=== PATIENT | female | born 1990 | race Caucasian/White ===

== ENCOUNTER 2024-08-31 17:09 | Inpatient (IN) ==
[2024-09-01] MEDS ORDERED: OXYTOCIN 30 UNITS/NSS 30 UNITS/500 ML BAG IV PRN ×2 (08:07→18:14)
[2024-09-01] MEDS ORDERED: LIDOCAINE 1% LOCAL 20 ML VIAL INFIL PRN (08:07)
[2024-09-01 08:42] LABS: Hematocrit (blood only) 29.6 % (37.0-47.0); Hemoglobin 9.6 g/dl (12.0-16.0); Mean Corpuscular Hemoglobin 26.1 pg (25.0-34.0); Mean Corpuscular Volume 80.4 fL (80.0-100.0); Platelet Count 209 K/uL (130-400); RDW Standard Deviation 37.2 fL (36.4-46.3); Red Blood Count 3.68 M/uL (4.20-5.40); White Blood Count 8.57 K/ul (4.8-10.8)
[2024-09-01] MEDS: LACTATED RINGER'S 1,000 ML IV PRN (08:58)
[2024-09-01] MEDS: OXYTOCIN 30 UNITS/NSS 30 UNITS/500 ML BAG IV PRN (08:59)
--- NOTE | 2024-09-01 11:56 | History & Physical Report ---
Date of Service September 01, 2024 Assessment & Plan (1) Supervision of normal intrauterine in multigravida: (2) Encounter for induction of labor: Plan Carrie is a 33-year-old G2, P1 currently at 39 weeks 6 days gestational age presents for elective induction of labor 1. Fetus: Category 1 tracing 2. Labor: Very favorable cervix will start with oxytocin per regular protocol. Will plan for rupture of membranes when appropriate. 3. GBS negative 4. Vitals within normal limits Admission and Anticipated Discharge Date Admission Date: September 01, 2024 History of Present Illness Primary Care Provider: Reema Yen MD Carrie is a 33-year-old G2, P1 currently at 39 weeks 6 days gestational age presents for elective induction of labor. has been uncomplicated to date. OB Labs: Blood Type A Positive 02/06/24 Antibody Screen NEGATIVE 02/06/24 Hgb 11.3 g/dl (12.0-16.0) L 06/11/24 Hct 34.2 % (37.0-47.0) L 06/11/24 MCV 87.8 fL (80.0-100.0) 02/06/24 Plt Count 286 K/uL (130-400) 02/06/24 Rubella IgG Antibody Equivocal (Immune) L 02/06/24 Treponema pallidum Ab Negative (Negative) 06/11/24 Hep Bs Antigen Negative (Negative) 02/06/24 Hepatitis C Antibody Negative (Negative) 02/06/24 HIV 1&2 Ab/P24 Ag 4thGn Negative (Negative) 02/06/24 Glucose 1 Hr 50 gm 151 mg/dl (70-130) H 06/11/24 OB Optional Labs: Chlamydia trachomatis RNA Not Detected (NotDetected) 02/06/24 Neisseria gonorrhoeae RNA Not Detected (NotDetected) 02/06/24 Labs Reviewed: cfdna-low risk--mln Allergies Allergy/AdvReac Type Severity Reaction Status Date / Time No Known Allergies Allergy Verified 08/30/24 12:00 Home Medications Medication Instructions Recorded Confirmed Type buspirone 5 mg tablet 5 mg PO BID 01/27/24 09/01/24 History montelukast 10 mg tablet 10 mg PO DAILY 01/27/24 09/01/24 History (Raululair) prenat.vits,ana,vyu-bjyv-rmrtr tab PO 1XD 01/27/24 08/30/24 History sertraline 50 mg tablet (Zoloft) 50 mg PO DAILY 01/27/24 09/01/24 History Patient History Medical History (Updated 09/01/24 @ 11:56 by Shant Cardenas MD) Depression affecting , Depression Anxiety Surgical History S/P wisdom tooth extraction Family History Mother Dyslipidemia Depression Father Dyslipidemia Grandmother (Maternal) Hypertension Grandfather (Maternal) Diabetes Heart disease Social History Smoking Status: Never smoker Second Hand Exposure: No; Do You Dip or Chew Tobacco: No; Tobacco Cessation Education Requested by Patient: No Hx Alcohol Use: No Hx Substance Use: No Preferred Language: Dominican Communication Ability: Effective 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 Beliefs That Will Affect Care: None marital status: marital status details: Garrett (34) [phone] Current Living Situation: Spouse and Family Current Living Situation Comment: - Hank; daughter Lefty, 2 cats current occupational status: employed current occupation: Head of [employer] Other Information That Helps Us Care for You: No Feels Safe at Home: Yes Safety Concerns: Feels Safe At This Time Assistive Devices: Glasses Physical Exam Genitourinary: normal external appearance Manual OB Exam: + cervical dilation 4 cm, + cervical effacement 70% and + station -2 OB Exam Monitor Tracing: + external FHT monitor used, + external uterine monitor used, + category I and + normal FHT variability Results & Data Vital Signs (Past 12 Hours) Vital Signs Pulse BP 09/01/24 07:44 114 H 122/70 Coding Level of Care Code None Diagnoses Supervision of normal intrauterine in multigravida in third trimester Z34.83 Trimester: third trimester Encounter for induction of labor Z34.90 (1) Supervision of normal intrauterine in multigravida Trimester: third trimester Qualified Code(s): Z34.83 - Encounter for supervision of other normal , third trimester
[2024-09-01] MEDS ORDERED: BUPIVACAINE 0.25% PF 30 ML VIAL EPI PRN (12:52)
[2024-09-01] MEDS ORDERED: NALOXONE HCL 1 MG in SODIUM CHLORIDE 0.9% 1,000 ML IV PRN (12:52)
[2024-09-01] MEDS ORDERED: SODIUM CHLORIDE 0.9% PF INJ 10 ML VIAL EPI PRN (12:52)
[2024-09-01] MEDS ORDERED: NALOXONE HCL 0.4 MG/1 ML VIAL/CARP IV PRN (12:52)
[2024-09-01] MEDS ORDERED: fentANYL 2 MCG/ML BUPIVacaine 0.125%-NSS 100ML BAG EPI PRN (12:52)
[2024-09-01] MEDS ORDERED: diphenhydrAMINE 50 MG/ML VIAL IV PRN (12:52)
[2024-09-01] MEDS ORDERED: NALBUPHINE HCL INJ 10 MG/ML AMP IV PRN (12:52)
[2024-09-01] MEDS ORDERED: ONDANSETRON INJ 2 MG/ML 2 ML VIAL IV PRN (12:52)
[2024-09-01] MEDS ORDERED: LIDOCAINE 2% MPF LOCAL 5 ML VIAL EPI PRN (12:52)
[2024-09-01] MEDS ORDERED: ROPIVACAINE 0.5% PF 5 MG/ML 20 ML VIAL EPI PRN (12:52)
--- NOTE | 2024-09-01 12:54 | Anesthesiology Consultation ---
Date of Service September 01, 2024 Assessment & Plan (1) Encounter for pre-operative examination: Chart Review Chart Review: Patient NOT seen in Pre Admission Testing and Acceptable Risk for Labor Epidural Consults Requested none History Height/Weight Height: 5 ft 7 in Weight: 79.832 kg Allergies Allergy/AdvReac Type Severity Reaction Status Date / Time No Known Allergies Allergy Verified 08/30/24 12:00 Medications Home Medications Medication Instructions Recorded Confirmed Last Taken buspirone 5 mg tablet 5 mg PO BID 01/27/24 09/01/24 08/31/24 21:00 montelukast 10 mg tablet 10 mg PO DAILY 01/27/24 09/01/24 08/30/24 21:00 (Singulair) prenat.vits,ana,fna-gdyz-ygkee tab PO 1XD 01/27/24 08/30/24 08/31/24 08:30 sertraline 50 mg tablet (Zoloft) 50 mg PO DAILY 01/27/24 09/01/24 08/31/24 08:30 Active Medications Generic Name Dose Route Start Last Admin Trade Name Freq PRN Reason Stop Dose Admin Oxytocin 30 units in 500 mls @ 6 mls/hr 09/01/24 08:07 09/01/24 10:00 Pitocin 30 Units/Nss IV 09/03/24 08:06 0.36 units/hr .Q24H PRN 6 mls/hr Labor Induction/Augmentation Titration Protocol 0.36 UNITS/HR Lactated Ringer's 1,000 mls @ 125 mls/hr 09/01/24 08:07 09/01/24 12:59 Lr IV 09/03/24 08:06 999 mls/hr .Q8H PRN Administration L&D Protocol Protocol Past Medical History Medical History (Updated 09/01/24 @ 12:54 by Tad Francis MD) Encounter for pre-operative examination Depression affecting , Depression Anxiety Exercise / Class Metabolic Activity II 4-5 Yardwork/Stairs/Walk up hill Past Family History Family History Mother Dyslipidemia Depression Father Dyslipidemia Grandmother (Maternal) Hypertension Grandfather (Maternal) Diabetes Heart disease Past Surgical History Surgical History S/P wisdom tooth extraction Social History Smoking Status: Never smoker Do You Dip or Chew Tobacco: No Hx Alcohol Use: No Alcohol Intake Frequency Comment: prior to - socially Hx Substance Use: No substance use type: does not use Physical Exam Vital Signs Last Vital Signs Temp 36.8 C 09/01/24 11:06 Pulse 82 09/01/24 13:24 Resp 18 09/01/24 12:30 BP 121/69 09/01/24 13:24 Pulse Ox 100 09/01/24 13:24 O2 Del Method Room Air 09/01/24 08:08 Testing Laboratory Results 09/01/24 08:24
[2024-09-01] MEDS: BUPIVACAINE 0.25% PF 30 ML VIAL ONE (13:26)
[2024-09-01] MEDS: LIDOCAINE 2%/EPINEPHRINE 1:200,000 20 ML PF ONE (13:26)
[2024-09-01] MEDS: LIDOCAINE 2%/EPINEPHRINE 1:200,000 20 ML PF EPI STA (13:30)
[2024-09-01] MEDS: SODIUM CHLORIDE 0.9% PF INJ 10 ML VIAL EPI STA (13:31)
[2024-09-01] MEDS: BUPIVACAINE 0.25% PF 30 ML VIAL EPI STA (13:31)
[2024-09-01] MEDS: fentANYL 2 MCG/ML BUPIVacaine 0.125%-NSS 100ML BAG ONE (13:33)
--- NOTE | 2024-09-01 14:22 | Labor Progress Brief Note ---
Date of Service September 01, 2024 Subjective Reason For Note: Routine Evaluation Assessment & Plan (1) Supervision of normal intrauterine in multigravida: Trimester: third trimester Qualified Code(s): Z34.83 - Encounter for supervision of other normal , third trimester (2) Encounter for induction of labor: Plan Carrie is a 33-year-old G2, P1 currently at 39 weeks 6 days gestational age presents for elective induction of labor 1. Fetus: Category 1 tracing 2. Labor: Very favorable cervix will start with oxytocin per regular protocol. AROM for clear. 3. GBS negative 4. Vitals within normal limits Admission and Anticipated Discharge Date Admission Date: September 01, 2024 Physical Exam Genitourinary: Manual OB Exam: + cervical dilation 5 cm, + cervical effacement 80%, + station -2 and + amniotic fluid (AROM) clear Results & Data Vital Signs (Past 12 Hours) Vital Signs Temp Pulse Resp BP Pulse Ox O2 Del Method 09/01/24 14:20 71 108/61 09/01/24 14:19 78 99 09/01/24 14:14 81 100 09/01/24 14:09 83 100 09/01/24 14:04 89 100 09/01/24 14:00 108 H 18 124/64 09/01/24 13:59 87 100 09/01/24 13:54 98 09/01/24 13:54 87 09/01/24 13:54 88 118/64 09/01/24 13:51 88 111/62 09/01/24 13:50 86 114/64 09/01/24 13:49 86 99 09/01/24 13:44 77 122/70 97 09/01/24 13:42 72 122/72 09/01/24 13:40 82 119/68 09/01/24 13:39 84 99 09/01/24 13:38 75 114/63 09/01/24 13:36 93 H 113/70 09/01/24 13:34 88 111/69 99 09/01/24 13:32 90 110/64 09/01/24 13:30 83 112/64 09/01/24 13:29 79 100 09/01/24 13:28 80 113/63 09/01/24 13:26 73 113/61 09/01/24 13:24 82 121/69 100 09/01/24 13:22 92 H 122/74 09/01/24 13:20 94 H 128/74 09/01/24 13:19 85 100 09/01/24 13:18 89 136/74 09/01/24 13:16 79 137/75 09/01/24 13:14 99 H 142/80 H 100 09/01/24 13:09 99 H 100 09/01/24 13:07 120 H 134/74 09/01/24 13:04 93 H 100 09/01/24 12:59 79 100 09/01/24 12:54 79 100 09/01/24 12:41 73 99 09/01/24 12:36 81 99 09/01/24 12:30 18 09/01/24 12:30 18 09/01/24 12:07 72 124/78 09/01/24 12:00 16 09/01/24 12:00 16 09/01/24 11:07 80 111/66 09/01/24 11:06 18 09/01/24 11:06 36.8 C 18 09/01/24 10:08 73 119/68 09/01/24 09:52 75 112/65 09/01/24 09:37 86 107/65 09/01/24 09:22 82 115/77 09/01/24 08:08 37.1 C 114 H 18 122/70 Room Air 09/01/24 07:44 114 H 122/70 Coding Level of Care Code None Diagnoses Supervision of normal intrauterine in multigravida in third trimester Z34.83 Trimester: third trimester Encounter for induction of labor Z34.90
[2024-09-01] MEDS ORDERED: HYDROCORTISONE ACETATE 25 MG SUPP PR PRN (18:14)
--- NOTE | 2024-09-01 18:19 | Delivery Summary ---
Vaginal Delivery Summary Date of Service September 01, 2024 Vaginal Delivery Summary and 2nd Degree LAC Patient progressed to 10 cm dilated, 100% effaced, +2 station and pushed over an intact perineum with epidural anesthesia and delivered a viable female with weight and Apgars pending. Head of the delivered without difficulty quickly followed by shoulders and body. was noted be vigorous upon delivery and 1 minute delayed cord clamping was initiated. Cord was then double clamped and cut remained on maternal abdomen. Cord blood obtained and attention turned to delivery of placenta was delivered intact with three-vessel cord with gentle cord traction. Inspection of perineum vagina and cervix there is noted to be a second-degree perineal laceration which was repaired with 3-0 Vicryl in traditional crown stitch. Needle sponge and instrument counts were correct at the completion of the case. Both mother and stable in the immediate postdelivery timeframe. No complications noted and blood loss per QBL in chart. [facility] Vaginal Delivery Charge Delivery Type Details: and 2nd Degree LAC
[2024-09-01] MEDS: SODIUM CHLORIDE 0.9% PF INJ 10 ML VIAL ONE (19:05)
[2024-09-01] MEDS: DIPHTHER/TETAN/PERTUS Vaccine (Tdap, Adol/Adult) 0.5mL IM ONE (19:05)
[2024-09-01] MEDS: IBUPROFEN 600 MG TAB PO PRN (19:07)
[2024-09-01] MEDS: BENZOCAINE 20% SPRY 85 APPLN/85 GM CAN EXT PRN (19:08)
--- NOTE | 2024-09-01 21:51 | Anesthesia Procedure Note ---
Date of Service September 01, 2024 Anesthesia Post Epidural Note Vital Signs Vital Signs: Temp Pulse Resp BP Pulse Ox O2 Del Method 36.8 C 90 16 105/69 97 Room Air 09/01/24 21:00 09/01/24 21:00 09/01/24 21:00 09/01/24 21:00 09/01/24 21:00 09/01/24 08:08 Notes Mental Status: alert / awake / arousable and participated in evaluation Patient Amnestic to Procedure: No Nausea / Vomiting: adequately controlled Pain: adequately controlled Airway Patency, RR, SpO2: stable & adequate BP & HR: stable & adequate Hydration State: stable & adequate Neuraxial Anesthesia: was administered and sensory block is resolving Anesthetic Complications: no major complications apparent and Pt Satisfied with anesthetic care Epidural: Removed without complications and With tip intact
[2024-09-01] MEDS: busPIRone 5 MG TAB PO SCH (23:24)
[2024-09-01] MEDS: DOCUSATE SODIUM 100 MG CAP PO SCH (23:24)
[2024-09-02] MEDS: ACETAMINOPHEN 325 MG TAB PO PRN (05:58)
--- NOTE | 2024-09-02 07:56 | Obstetrical Progress Note ---
Date of Service September 02, 2024 Assessment & Plan (1) Encounter for care and examination after delivery: Day 1 status post vaginal delivery. Urinary retention requiring several straight caths since delivery. Lutz replaced this morning. Will continue to monitor and will plan voiding trial later today or tomorrow morning Subjective Ambulation: ambulating normally Voiding: lutz catheter in place and voiding difficulty Passing Gas:: Yes Diet Tolerance:: regular diet Lochia:: Moderate Urinary retention requiring several straight caths since delivery. Lutz replaced this morning Physical Exam Constitutional WD/WN, vitals as above Respiratory normal respiratory effort; no respiratory distress and no labored breathing Cardiovascular Extremities: no calf tenderness Gastrointestinal (Abdomen) Inspection/Auscultation: abdomen normal to inspection; abdomen not distended Percussion/Palpation: abdomen soft; abdomen nontender, no guarding and abdomen not rigid Genitourinary OB Exam Abdomen: + fundal height Fundus: + firm and + relation to umbilicus (Below); not tender or not boggy Results & Data Vital Signs (Past 12 Hours) Vital Signs Temp Pulse Resp BP Pulse Ox 09/02/24 04:45 36.6 C 69 16 118/76 100 09/02/24 01:45 36.8 C 78 16 107/69 99 09/01/24 21:00 36.8 C 90 16 105/69 97 09/01/24 20:20 36.8 C 18 09/01/24 20:10 94 H 107/60
[2024-09-02 08:09] LABS: Hematocrit (blood only) 25.0 % (37.0-47.0); Hemoglobin 7.9 g/dl (12.0-16.0)
[2024-09-02] MEDS: FERROUS SULFATE 325 MG TAB PO SCH (08:50)
[2024-09-02] MEDS: PRENATAL VITAMIN 1 TAB PO SCH (08:50)
[2024-09-02] MEDS: SERTRALINE HCL 50 MG TABLET PO SCH (08:51)
[2024-09-02 11:42] VITALS: RESP 18
[2024-09-02] MEDS: ONDANSETRON 4 MG OD TAB PO PRN (14:19)
[2024-09-02 19:01] VITALS: BP 137/77; PULSE 81; TEMP 97.5; O2SAT 99
--- NOTE | 2024-09-02 20:19 | Obstetrical Progress Note ---
Date of Service September 02, 2024 Assessment & Plan Admission and Anticipated Discharge Date Admission Date: September 01, 2024 Subjective Basurto was removed this afternoon, has been voiding on her own and feels like she is emptying her bladder well at this point. Desires DC home. Results & Data Vital Signs (Past 12 Hours) Vital Signs Temp Pulse Resp BP Pulse Ox O2 Del Method 09/02/24 19:00 36.4 C L 81 18 137/77 99 Room Air 09/02/24 12:10 36.7 C 79 18 108/70 Room Air 09/02/24 08:45 36.8 C 91 H 18 Room Air PG Care Time/CCT Total # of Minutes Spent Total Time Spent with Patient: Total time spent is greater than 50% in coordination of care (as documented) at patient's floor/unit and/or counseling patient: Coding Level of Care Code None
== END 2024-09-02 22:30 | disposition home or self-care (01) | DRG 807 ==
LOC: 4S1 09-01 07:39 → 4E2 09-01 21:14